=== PATIENT | female | born 1960 | race Caucasian/White ===

== ENCOUNTER 2020-06-21 00:51 | Emergency (ER) | payer OTHER ==
[~2020-06-21] VITALS: Ht 149.9 cm; Wt 45.4 kg
[~2020-06-21 00:51] MED LIST: ALBU90OI6 INH; ALBU90OI61; BUDE10.22; BUDE10.22 INH; BUDE6HFA; CEPH500 PO; CODACE30 PO; CYCL10 PO; DULO60 PO; ESCI10 PO; ESCI20 PO; HYDACE5 PO; OLAN20 PO; OMEP20ER PO; OXYACE5T PO; PRED20 PO; PROM25 PO; SILSUL1TC TOP; SULTRIDS PO; TIOT18; TRAM50 PO
[2020-06-21 01:26] LABS: Hematocrit 41.2 % (33.0-51.0); Hemoglobin 13.2 g/dL (11.5-16.0); Mean Corpuscular HGB 25.7 pg (26.0-34.0); Mean Corpuscular Volume 80 fL (80-100); Mean Platelet Volume 9.2 fL (9.1-12.4); Platelet Count 312 K/mm3 (150-400); RDW Standard Deviation 50.9 fL (35.1-46.3); Red Blood Cell Count 5.14 M/mm3 (3.80-5.20); White Blood Cell Count 21.02 K/mm3 (4.00-11.30)
[2020-06-21 01:47] LABS: Alanine Aminotransfer (ALT/SGP 22 U/L (12-78); Albumin, Blood 2.8 g/dL (3.4-5.0); Albumin/Globulin Ratio 0.5 (0.8-1.8); Alk Phos 112 U/L (50-136); Anion Gap 9 mmol/L (6-16); Aspartate Aminotrans (AST/SGOT 22 U/L (12-37); Bilirubin, Total 0.5 mg/dL (0.1-1.0); Blood Urea Nitrogen 14 mg/dL (8-24); Bun/Creatinine Ratio 18.6 (12.0-20.0); CO2, Blood 22 mmol/L (21-32); Calcium, Blood 8.2 mg/dL (8.5-10.1); Chloride, Blood 103 mmol/L (98-108); Creatinine, Blood 0.75 mg/dL (0.40-1.00); Globulin, Blood 5.2 g/dL (2.2-4.0); Glomerular Filtration Rate >60 (60-); Glucose, Blood 141 mg/dL (70-99); Sodium, Blood 134 mmol/L (136-145); Troponin I <0.015 ng/mL (0.000-0.040)
[2020-06-21 01:48] LABS: BAND PERCENT MAN 13 % (0-8); BASOPHILS PERCENT MAN 0 % (0-2); EOSINOPHILS PERCENT MAN 0 % (0-6); IMMATURE GRAN ABSOLUTE AUTO 0.42 K/mm3 (0.00-0.10); IMMATURE GRAN PERCENT AUTO 2 % (0-1); LYMPHOCYTES PERCENT MAN 8 % (21-46); MONOCYTES PERCENT MAN 9 % (4-13); SEG NEUTROPHILS PERCENT MAN 70 % (41-73); TOTAL CELLS COUNTED 100
[2020-06-21] MEDS ORDERED: Ventolin/Prove6.7 GM INH (02:53)
[2020-06-21] MEDS ORDERED: Prednisone20 MG PO (02:53)
[2020-06-21] MEDS ORDERED: AZIT250 PO (02:53)
== END 2020-06-21 03:15 | disposition home or self-care (01) ==
LOC: ER 00:51
PROVIDERS: Emergency Medicine
DX: J44.1 Chronic obstructive pulmonary disease with (acute) exacerbation (principal); J18.9 Pneumonia, unspecified organism; Z88.5 Allergy status to narcotic agent; Z88.8 Allergy status to other drugs, medicaments and biological substances; Z79.899 Other long term (current) drug therapy; F32.9 Major depressive disorder, single episode, unspecified; F17.200 Nicotine dependence, unspecified, uncomplicated; Z85.118 Personal history of other malignant neoplasm of bronchus and lung
CPT/HCPCS: 36415; 71045; 80053; 84484; 85025; 93005; 93010; 94644; 96365; 96375; 99285-25; J0696; J2930

== ENCOUNTER 2024-11-08 12:25 | Emergency (ER) | payer OTHER ==
[~2024-11-08] VITALS: Ht 149.9 cm; Wt 50.8 kg
[~2024-11-08 12:25] MED LIST changes: -DOXY100 PO; -ELIQUIS5 M2 PO
[2024-11-08 18:40] VITALS: BP 155/70
[2024-11-08] MEDS ORDERED: Acetaminophen 500 MG Tab PO ONE (20:30)
[2024-11-08] MEDS ORDERED: Doxycycline Hyclate 100 MG TAB PO ONE (22:35)
[2024-11-08] MEDS ORDERED: Apixaban 5 MG Tab PO ONE (22:35)
[2024-11-08] MEDS ORDERED: ELIQUIS5 M2 PO (22:41)
[2024-11-08] MEDS ORDERED: DOXY100 PO (22:41)
== END 2024-11-08 23:00 | disposition home or self-care (01) ==
LOC: ER 12:25
DX: I26.99 Other pulmonary embolism without acute cor pulmonale (principal); J40 Bronchitis, not specified as acute or chronic; J44.9 Chronic obstructive pulmonary disease, unspecified; F17.200 Nicotine dependence, unspecified, uncomplicated; R09.02 Hypoxemia; R05.9 Cough, unspecified; J98.8 Other specified respiratory disorders; Z88.5 Allergy status to narcotic agent; Z88.8 Allergy status to other drugs, medicaments and biological substances; Z79.899 Other long term (current) drug therapy; Z79.52 Long term (current) use of systemic steroids
CPT/HCPCS: 71046; 71260; 80053; 83880; 84145; 84484; 85025; 85379; 93005; 93010; 99285-25; A9270; Q9967

== ENCOUNTER → 2024-11-08 | Outpatient (CLI) | payer OTHER ==
[~2024-11-08] MED LIST changes: +AZIT250 PO; +DOXY100 PO; +ELIQUIS5 M2 PO; +Prednisone20 MG PO; +Ventolin/Prove6.7 GM INH
[2024-11-08 11:17] LABS: BASOPHILS ABSOLUTE AUTO 0.02 K/mm3 (0.00-0.23); BASOPHILS PERCENT AUTO 0 % (0-2); EOSINOPHILS PERCENT AUTO 0 % (0-6); Hemoglobin 11.3 g/dL (11.5-16.0); IMMATURE GRAN ABSOLUTE AUTO 0.01 K/mm3 (0.00-0.10); IMMATURE GRAN PERCENT AUTO 0 % (0-1); LYMPHOCYTES ABSOLUTE AUTO 1.73 K/mm3 (0.84-5.20); LYMPHOCYTES PERCENT AUTO 19 % (21-46); MONOCYTES ABSOLUTE AUTO 0.73 K/mm3 (0.16-1.47); MONOCYTES PERCENT AUTO 8 % (4-13); Mean Corpuscular HGB 30.5 pg (26.0-34.0); Mean Corpuscular HGB Conc 32.3 g/dL (31.5-36.5); Mean Corpuscular Volume 95 fL (80-100); Mean Platelet Volume 9.6 fL (9.1-12.4); NEUTROPHILS ABSOLUTE AUTO 6.66 K/mm3 (1.96-9.15); NEUTROPHILS PERCENT AUTO 73 % (41-73); Platelet Count 265 K/mm3 (150-400); RDW Coefficient Variation 13.7 % (11.7-14.2); RDW Standard Deviation 47.4 fL (35.1-46.3); White Blood Cell Count 9.15 K/mm3 (4.00-11.30)
[2024-11-08 11:30] LABS: Albumin, Blood 3.1 g/dL (3.4-5.0); Albumin/Globulin Ratio 0.8 (0.8-1.8); Bilirubin, Total 0.6 mg/dL (0.1-1.0); Bun/Creatinine Ratio 14.1 (12.0-20.0); Creatinine, Blood 0.78 mg/dL (0.40-1.00); Globulin, Blood 4.1 g/dL (2.2-4.0); Potassium, Blood 3.7 mmol/L (3.5-5.5); Total Protein, Blood 7.2 g/dL (6.4-8.2)
== END ==
LOC: LAB SHORT 10:12
PROVIDERS: Physician Assistant
DX: R09.02 Hypoxemia (principal)
CPT/HCPCS: 80053; 84145; 85025; 85379

== ENCOUNTER 2025-04-16 07:23 | Emergency (ER) | payer OTHER ==
[~2025-04-16] VITALS: Ht 149.9 cm; Wt 49.9 kg
[~2025-04-16 07:23] MED LIST changes: +DOXY100 PO; +ELIQUIS5 M2 PO
[2025-04-16] MEDS ORDERED: Albuterol 2.5 MG/3 ML VIAL INH SCH (07:35)
[2025-04-16] MEDS ORDERED: PredniSONE 20 MG Tab PO ONE (07:35)
[2025-04-16] MEDS ORDERED: Ipratropium/Albuterol SulF 2.5-0.5MG/3 ML Amp INH ONE (07:35)
[2025-04-16] MEDS ORDERED: IPRAT-ALBUT 0.5-3 ML INH (09:57)
[2025-04-16] MEDS ORDERED: PRED20 PO (09:57)
[2025-04-16 09:58] VITALS: BP 155/87
== END 2025-04-16 10:00 | disposition home or self-care (01) ==
LOC: ER 07:23
DX: J44.1 Chronic obstructive pulmonary disease with (acute) exacerbation (principal); I12.9 Hypertensive chronic kidney disease with stage 1 through stage 4 chronic kidney disease, or unspecified chronic kidney disease; E11.22 Type 2 diabetes mellitus with diabetic chronic kidney disease; N18.2 Chronic kidney disease, stage 2 (mild); K21.9 Gastro-esophageal reflux disease without esophagitis; F17.210 Nicotine dependence, cigarettes, uncomplicated; Z88.8 Allergy status to other drugs, medicaments and biological substances; Z79.2 Long term (current) use of antibiotics; Z79.01 Long term (current) use of anticoagulants; Z79.899 Other long term (current) drug therapy; Z88.5 Allergy status to narcotic agent; Z79.52 Long term (current) use of systemic steroids
CPT/HCPCS: 71046; 93005; 93010; 99285-25; J7512